=== PATIENT | male | born 1950 ===

== ENCOUNTER 2018-10-31 08:02 | Day surgery (SDC) | payer MEDICARE ==
[~2018-10-31 08:02] MED LIST: Acetaminophen TAB* 325 MG PO PRN; Buffered Lidocaine 1% SYRIN* 1 ML/SYRINGE INTRADERM ONE
[2018-10-31] MEDS ORDERED: Midazolam* 1 MG/ML 2 ML VIAL (2 MG) ONE (10:16)
[2018-10-31] MEDS ORDERED: Ketorolac 0.5% OPHTH (NF) 0.5 % 5 ML BTL ONE (11:00)
[2018-10-31] MEDS ORDERED: Lidocaine 2% EPI 1:200000 MPF*10-20 ML VIAL ONE (11:00)
[2018-10-31] MEDS ORDERED: Neomycin/Polymy/Dex OPTH.SUSP* MAXITROL 0.1% 5 ML ONE (11:00)
[2018-10-31] MEDS ORDERED: Povidone Iodine 5% OPTH* 30 ML BTL ONE (11:00)
[2018-10-31] MEDS ORDERED: Lidocaine 1%* 5 ML VIAL ONE (11:00)
[2018-10-31] MEDS ORDERED: Phenylephrine 2.5% OPTH.SOL* 2 ML BTL ONE (11:00)
[2018-10-31] MEDS ORDERED: Cyclopentolate 1% OPTH.SOL* 2 ML BTL ONE (11:00)
[2018-10-31] MEDS ORDERED: acetaZOLAMIDE TAB* 250 MG ONE (11:00)
[2018-10-31] MEDS ORDERED: Proparacaine 0.5% OPHTH.SOL* 15 ML BTL ONE (11:00)
[2018-10-31 11:09] VITALS: BP 149/84
--- NOTE | 2018-10-31 11:12 | OP ---
DATE OF OPERATION: 10/31/2018. DATE OF : 1950. SURGEON: Mychal Walker M.D. PREOPERATIVE DIAGNOSIS: Cataract right eye, glaucoma. POSTOPERATIVE DIAGNOSIS: Cataract right eye, glaucoma. OPERATIVE PROCEDURE: Extracapsular cataract extraction with intraocular lens implant and iStent righ t eye. PROCEDURE: The patient was brought to the operating room after being given 1/2% Alcaine with epineph rine drops in the preoperative area. The eye was prepped and draped in the usual sterile fashion. S terile drape and eyelid speculum were placed. Again, topical 1/2% Alcaine with epinephrine was given . A paracentesis incision was made at the 9 o'clock position with the No.75 blade. Clear cornea inc ision 2.2 x 2.2-mm was created at the 12 o'clock position starting at the anterior limbus using the 2 .2-mm keratome. The anterior chamber was irrigated with 0.4 mL of 1% non-preservative intracameral l idocaine and filled with DisCoVisc. A capsulorrhexis was completed using the cystotome and the Utrat a forceps. Hydrodissection was performed with balanced salt solution. The lens nucleus was removed w ith the Phacoemulsification handpiece without incident. Cortex was removed with the irrigation-aspir ation handpiece. The capsular bag was re-inflated using DisCoVisc and an SN60WF 19.5 implant was ins erted with the shooter, followed by iStent inject placed without difficulty at the 2 o'clock and 4 o' clock position. The irrigation-aspiration handpiece was used to remove all residual DisCoVisc. The e ye was refilled with balanced salt solution and the wound checked and found to be watertight. Topica l Maxitrol drops were given. [id number]/[facility] #: [id number]
== END 2018-10-31 10:52 | disposition home or self-care (01) ==
LOC: OREAST 08:02
PROVIDERS: ATTEND Specialist
DX: H25.811 Combined forms of age-related cataract, right eye (principal); H40.1111 Primary open-angle glaucoma, right eye, mild stage; J44.9 Chronic obstructive pulmonary disease, unspecified; E78.00 Pure hypercholesterolemia, unspecified; E78.5 Hyperlipidemia, unspecified; Z72.0 Tobacco use
CPT/HCPCS: A9270-GY; C1783; J2250; V2632